=== PATIENT | female | born 1940 | race Asian ===

== ENCOUNTER → 2017-02-06 | Outpatient (CLI) | payer MEDICARE ==
[~2017-02-06] MED LIST: ALBU90AE INH; CEFD300C2 PO; FLUT1DIS3 INH; LEVO100T5 PO; LOSA100T6 PO; LYSI500T PO; METR500T PO; MULT-717 PO; OXYC5TAB3 PO; PARO20TA4 PO; PRAV20TA2 PO; WARF1TAB PO; zinc PO
== END | disposition home or self-care (01) ==
LOC: RAD 12:47
PROVIDERS: ATTEND Internal Medicine
DX: R13.12 Dysphagia, oropharyngeal phase (principal); R47.1 Dysarthria and anarthria; Z93.1 Gastrostomy status
CPT/HCPCS: 74230

== ENCOUNTER → 2017-02-23 | Outpatient (CLI) | payer MEDICARE ==
[~2017-02-23] MED LIST changes: -CEFD300C2 PO; +CEFD300C37 PO
[2017-02-27 10:07] LABS: T4 FREE DIRECT 1.28 ng/dL (0.82-1.77); THYROID STIMULATING HORMONE 0.384 uIU/mL (0.450-4.500)
== END | disposition home or self-care (01) ==
LOC: LAB 10:25
PROVIDERS: ATTEND Internal Medicine
DX: I63.442 Cerebral infarction due to embolism of left cerebellar artery (principal); I10 Essential (primary) hypertension; E78.2 Mixed hyperlipidemia; E03.9 Hypothyroidism, unspecified; I48.0 Paroxysmal atrial fibrillation; E13.65 Other specified diabetes mellitus with hyperglycemia
CPT/HCPCS: 36415; 84439; 84443; 84481

== ENCOUNTER → 2017-04-03 | Outpatient (CLI) | payer MEDICARE ==
[2017-04-03 07:47] LABS: ASPARTATE AMINO TRANSFERASE 19 U/L (15-37); BLOOD UREA NITROGEN 23 mg/dL (7-18)
== END | disposition home or self-care (01) ==
LOC: LAB 06:49
PROVIDERS: ATTEND Internal Medicine
DX: E78.2 Mixed hyperlipidemia (principal); I10 Essential (primary) hypertension; I63.442 Cerebral infarction due to embolism of left cerebellar artery; I48.0 Paroxysmal atrial fibrillation; E03.9 Hypothyroidism, unspecified; E13.65 Other specified diabetes mellitus with hyperglycemia
CPT/HCPCS: 36415; 80053; 80061; 82043; 83036; 84443

== ENCOUNTER 2017-05-21 11:19 | Emergency (ER) | payer MEDICARE ==
[~2017-05-21] VITALS: Ht 170.2 cm; Wt 62.2 kg
[2017-05-21] MEDS ORDERED: FLUT1AER INH (11:42)
[2017-05-21] MEDS ORDERED: AMLO2.5T PO (11:42)
[2017-05-21] MEDS ORDERED: KETOROLAC 30 MG/1 ML ONE (12:12)
[2017-05-21] MEDS ORDERED: KETOROLAC 30 MG/1 ML IM ONE (12:30)
[2017-05-21 14:28] VITALS: BP 155/56
== END 2017-05-21 15:00 | disposition home or self-care (01) ==
LOC: ED 14:50
DX: S76.212A Strain of adductor muscle, fascia and tendon of left thigh, initial encounter (principal); S40.011A Contusion of right shoulder, initial encounter; W18.30XA Fall on same level, unspecified, initial encounter; Y93.89 Activity, other specified; Y92.009 Unspecified place in unspecified non-institutional (private) residence as the place of occurrence of the external cause; Y99.9 Unspecified external cause status; E11.9 Type 2 diabetes mellitus without complications; I10 Essential (primary) hypertension; J45.909 Unspecified asthma, uncomplicated; Z87.891 Personal history of nicotine dependence; Z86.73 Personal history of transient ischemic attack (TIA), and cerebral infarction without residual deficits
CPT/HCPCS: 73060; 73502; 93971; 96372; 99284; J1885

== ENCOUNTER 2017-06-07 13:59 | Emergency (ER) | payer MEDICARE ==
[~2017-06-07] VITALS: Ht 177.8 cm; Wt 53.0 kg
[~2017-06-07 13:59] MED LIST changes: +AMLO2.5T PO; +FLUT1AER INH
[2017-06-07 14:09] VITALS: BP 173/59
[2017-06-07] MEDS ORDERED: TRAM50TA2 PO (14:13)
[2017-06-07] MEDS ORDERED: LEVO50TA5 PO (14:13)
[2017-06-07] MEDS ORDERED: LIDOCAINE 1%, 20ML ONE (15:54)
[2017-06-07] MEDS ORDERED: VISIPAQUE 270 MG/ML, 50ML BOTTLE ONE (16:34)
== END 2017-06-07 17:26 | disposition home or self-care (01) ==
LOC: ED 14:45
DX: Z43.1 Encounter for attention to gastrostomy (principal); I69.921 Dysphasia following unspecified cerebrovascular disease
CPT/HCPCS: 49440; 99284; C1729; C1769; J3490; Q9966; 43760

== ENCOUNTER 2017-06-28 17:15 | Emergency (ER) | payer MEDICARE ==
[~2017-06-28] VITALS: Ht 170.2 cm; Wt 55.0 kg
[~2017-06-28 17:15] MED LIST changes: +LEVO50TA5 PO; +TRAM50TA2 PO
[2017-06-28 18:42] LABS: BLOOD UREA NITROGEN 27 mg/dL (7-18)
[2017-06-28 18:48] LABS: IS PT STATUS REG ER OR PRE ER? YES
[2017-06-28 18:52] LABS: HEMATOCRIT 36.2 % (34.6-47.8); HEMOGLOBIN 11.8 g/dL (11.7-16.4); WHITE BLOOD COUNT 8.3 x10^3/uL (3.4-10)
[2017-06-28] MEDS ORDERED: SODIUM CHLORIDE 0.9% 1,000ML IVBOLUS ONE (20:30)
[2017-06-29 00:01] VITALS: BP 151/66
== END 2017-06-29 00:03 | disposition home or self-care (01) ==
LOC: ED 18:33
DX: Z46.59 Encounter for fitting and adjustment of other gastrointestinal appliance and device (principal); R05 Cough; I48.0 Paroxysmal atrial fibrillation; E11.9 Type 2 diabetes mellitus without complications; I10 Essential (primary) hypertension; J45.909 Unspecified asthma, uncomplicated; Z88.0 Allergy status to penicillin; Z88.5 Allergy status to narcotic agent; Z86.73 Personal history of transient ischemic attack (TIA), and cerebral infarction without residual deficits
CPT/HCPCS: 36415; 43760; 71010; 74000; 80048; 82040; 83880; 84443; 84484; 85025; 85610; 93005; 96360; 96361; 99285; J7030